=== PATIENT | male | born 1950 | race Caucasian/White ===

== ENCOUNTER 2017-08-27 17:55 | Inpatient (IN) ==
[2017-08-27] MEDS ORDERED: SODIUM CHLORIDE 0.9% 1,000 ML IV STA (18:35)
[2017-08-27 18:52] LABS: Basophils # 0.1 10*3/uL (0.0-0.2); Basophils % 0.5 % (0.0-0.8); Eosinophils # 0.7 10*3/uL (0.0-0.87); Hematocrit 44.8 VOL% (42.0-52.0); Hemoglobin 14.9 GM/DL (14.0-18.0); Immature Granulocytes % 1.3 %; Immature Granulocytes Absolute 0.13 #; Lymphocytes # 1.4 10*3/uL (1.4-4.0); Lymphocytes % 14.6 % (21.2-54.2); Mean Corpuscular HGB Conc 33.3 GM/DL (32-36); Mean Corpuscular Hemoglobin 33 PG (27-34); Mean Corpuscular Volume 98.7 FL (87-102); Mean Platelet Volume 10.3 FL (9.6-12.0); Monocytes # 0.5 10*3/uL (0.11-0.8); Monocytes % 5.2 % (1.7-12.7); Neutrophils # 6.9 10*3/uL (1.4-7.4); Neutrophils % 71.4 % (38.7-73.9); Platelet Count 292 T/CUMM (130-400); Red Blood Count 4.54 MC/CUMM (3.8-5.5); Red Cell Distribution Width 12.1 % (9.3-17.3); White Blood Count 9.7 T/CUMM (4-12)
--- NOTE | 2017-08-27 18:58 | Emergency Department Note ---
Arrival - Arrival Chief Complaint: Shortness of Breath Stated Complaint: shortness of breath ED Nursing Triage Note: Brought in per EMS from home with c/o shortness of breath onset prior to arrival. Family member reports oxygen saturation 31%, patient became cool and clammy with blue lips. Currently on CPAP, skin color pink. Awake and alert. Denies pain. Mode of Arrival: Stretcher Time Seen by Provider: 08/27/17 18:17 - History of Present Illness HPI Narrative: This is a 67-year-old white male with a history of oxygen dependent COPD who continues to smoke cigarettes who was admitted to this hospital in January 2017 with exacerbation of COPD and pneumonitis who subsequently admitted to [facility] in May 2017 and intubated for respiratory failure thought to be due to an allergic reaction to an unknown antigen presents with hypoxemia which was discovered by his family member who came home and found him with a heart rate of 40 and O2 sat of 30% on 2 L nasal and decreased mental status. The family member said that the patient was staring into space and so she called an ambulance. The patient arrived to the emergency department on CPAP and is now awake and answering questions appropriately. Allergies/Adverse Reactions: Allergies Allergy/AdvReac Type Severity Reaction Status Date / Time No Known Allergies Allergy Unverified 01/31/17 19:17 Home Medications: Home Medications Medication Instructions Recorded Confirmed Type Albuterol Sulfate [Ventolin HFA] 2 puff INH Q4H PRN 01/31/17 08/27/17 History Fluticasone/Vilanterol [Breo 1 puff INH DAILY 01/31/17 08/27/17 History Ellipta 100-25 Mcg INH] HYDROcodone/ACETAMIN 10-325 [[place] 1 tablet PO Q8H PRN 01/31/17 08/27/17 History 10-325] clonazePAM [Klonopin] 1 mg PO TID PRN 01/31/17 08/27/17 History Albuterol Neb [Proventil Neb] 2.5 mg RESP TX Q6HR 08/27/17 08/27/17 History Cholecalciferol (Vitamin D3) 5,000 unit PO QAM 08/27/17 08/27/17 History [Vitamin D3] Propranolol HCl [Propranolol Tab] 20 mg PO BID 08/27/17 08/27/17 History Review of System - Review of System Constitutional: Absent: fever, night sweats Eyes: Absent: redness Head/Ears/Nose/Throat: Absent: nasal drainage Respiratory: Present: cough, respiratory distress Cardiovascular: Present: dyspnea on exertion. Absent: chest pain, orthopnea Gastrointestinal: Absent: nausea, vomiting, diarrhea Genitourinary male: Absent: dysuria, hematuria Musculoskeletal: Absent: arthralgia, back pain, neck pain Skin: Absent: change in color, change in hair/nails Neurological: Absent: numbness, paresthesias, confusion Psychiatric: Absent: anxiety, depression Endocrine: Absent: heat intolerance, polydipsia, polyuria Hematological/Lymphatic: Absent: easy bruising, lymphadenopathy Allergic/Immunologic: Absent: urticaria, itchy eyes Medical,Surgical,& Family Hx - Medical History Cardio: History of: Hypertension Respiratory: History of: COPD, Respiratory Problems (wear o2 at home) Other: History of: Miscellaneous Medical Problems (orthostatic hypotension) - Surgical History Cardiac Surgeries: Patient Denies: Cardiac Catheterization Thoracic Surgeries: Patient denies;: Organ Transplant, Lobectomy Neurologic Surgeries: Patient denies: Neurologic Surgery HEENT Surgeries: Patient denies: Eye Surgery, Tonsilectomy & Adenoidectomy Abdominal Surgeries: Patient denies: Abdominal Surgery Reproductive Surgeries: Patient denies;: Genitourinary Surgery Orthopedic Surgeries: Surgical HX of;: Orthopedic Surgery (Right wrist surgery status post traumatic accident) - Family History Family History: Reports;: Family Heart Disease - Social History Smoking Status: Current every day smoker Frequency of Alcohol Use: None Type of Drug Use: None Exam Vital Signs: Vital Signs Temperature 97.0 F L 08/27/17 18:47 Pulse Rate 80 08/27/17 18:47 Respiratory Rate 22 08/27/17 19:21 Blood Pressure 103/67 08/27/17 18:47 O2 Sat by Pulse Oximetry 96 08/27/17 17:55 - General General appearance: alert - Eye Eye exam: Present: PERRL, EOMI - ENT ENT exam: Present: normal exam, normal oropharynx - Neck Neck exam: Present: normal inspection, full ROM - Chest Chest inspection: Present: normal inspection - Respiratory Respiratory exam: Present: rhonchi - Cardiovascular Cardiovascular exam: Present: regular rate, normal rhythm - Abdominal Exam Abdominal exam: Present: soft, normal bowel sounds - Extremities Exam Extremities exam: Present: normal inspection, full ROM - Back Exam Back exam: Present: normal inspection, full ROM - Neurological Exam Neurological exam: Present: alert, oriented X3, CN II-XII intact - Psychiatric Psychiatric exam: Present: normal affect, normal mood - Skin Skin exam: Present: warm, dry Course Course Narrative: Because the patient had altered mental status at home and had a measured O2 sat of 31% because he came to the emergency department with CPAP seems reasonable the patient should be admitted for at least observation until we are sure his respiratory status is stable. CT scan of the chest does not suggest that he has pneumonia as the cause of his respiratory failure. The troponin is negative and the electrocardiogram are basically normal. The elevated potassium 6.1 seems to be spurious based on the normal renal function and EKG. The case was discussed with the hospitalist group to admit the patient to the hospital for evaluation and treatment Results - Labs CBC & BMP: 08/27/17 18:10 08/27/17 18:10 Disposition Clinical Impression: COPD exacerbation Disposition: Still a Patient Additional Instructions: The case was discussed with the hospitalist who agreed to admit the patient to the hospital for further evaluation and treatment of his respiratory failure
[2017-08-27] MEDS ORDERED: ALBUTEROL/IPRATROPIUM 3 ML NEB RESP TX STA (18:59)
[2017-08-27] MEDS ORDERED: methylPREDNISolone SOD SUC 125 MG/2 ML VIAL IV STA (18:59)
[2017-08-27] MEDS ORDERED: methylPREDNISolone SOD SUC 125 MG/2 ML VIAL ONE (19:09)
[2017-08-27 19:10] LABS: Albumin 3.8 G/DL (3.4-5.0); Bilirubin,Total 0.5 MG/DL (0.2-1.0); Calcium 9.6 MG/DL (8.5-10.1); Osmolality,Calculated 279.8 MOS/KG (273-304); Total Protein 8.1 G/DL (6.4-8.3)
[2017-08-27 19:12] LABS: Troponin I Only < 0.015 NG/ML (0.00-0.045)
[2017-08-27 19:16] LABS: Potassium 6.1 MMOL/L (3.5-5.1)
--- NOTE | 2017-08-27 19:56 | CT Report ---
History: Hypoxemia. Shortness of breath. Respiratory distress Date: 08/27/2017 Study: CT chest without IV contrast Comparison exam: February 02, [address] exam was performed using one or more of the following dose reduction techniques: Automated exposure control, adjustment of the mA and/or kV according to patient size, or use of iterative reconstruction technique. Spiral CT sections were obtained through the lungs without contrast. There is slight hyperexpansion of the right lung with volume loss in the left lung. The right lower lobe is slightly more hyperexpanded than the right upper and middle lobes. There are some mild to moderate changes of centrilobular emphysema, more so in the lung apices. There is some mild subsegmental atelectasis in the left lower lung. There is some mild bronchial wall thickening which is more prominent on the left than on the right. There are some retained secretions in the distal aspect of the left mainstem bronchus, extending into the left upper and lower lobe proximal bronchi. There is no significant pleural or pericardial effusion. There is moderate coronary artery calcification present. There is no mediastinal mass or mediastinal lymphadenopathy. There is no thoracic aortic aneurysm. There is no definite acute abnormality of the visualized upper abdomen. There is a nonobstructing 5 mm renal stone in the left upper pole. There are some rounded low densities in the left upper pole which could represent renal cysts as before. There is mild thoracic spondylosis. Impression: There are some retained secretions in the distal aspect of the left mainstem bronchus, extending into the central left upper and lower lobe bronchi. There is no definite discrete bronchial mass seen by this exam Mild volume loss in the left lower lung. Slight hyperexpansion of the right lung Centrilobular emphysema Coronary artery calcification No significant changes from the previous study otherwise PROCEDURE INTERPRETED AT [facility] DEPARTMENT OF RADIOLOGY Final Report Signed by: Dr. Mira Clemons
[2017-08-27 20:08] LABS: VBG Base Excess 5.3 MEQ/L (0-4); VBG HCO3 37.7 MEQ/L (24-28); VBG Oxygen Saturation 83.1 %; VBG PCO2 100.1 MMHG (41-51); VBG PH 7.194; VBG PO2 46.2 MMHG (17-40)
[2017-08-27] MEDS ORDERED: ONDANSETRON 4 MG/2 ML VIAL IV PRN (20:24)
--- NOTE | 2017-08-27 20:52 | Hospitalist History & Physical ---
Assessment and Plan - Time spent with patient Time spent with patient: Greater than 30 minutes (1) COPD exacerbation Status: Acute Assessment and plan: Admit to hospitalist services. Consult pulmonology. No leukocytosis noted on tonight's labs. CXR was negative for acute process. Start Levaquin 750 mg IV Q 24. DuoNebs Q6 hours. Solumedrol 40 mg IV Q12 hours. O2 per unit protocol. Blood cultures obtained in ED; follow. Repeat CBC and BMP in a.m. Current Visit: Yes (2) Hypoxia Status: Acute Assessment and plan: O2 sats at home were in the 40s. Improved on bipap in route to ED. Bipap weaned in ED; he is now on O2 at 3L by [place]. Sats have improved into the 90s since arrival. Plan as above. Current Visit: Yes (3) Altered mental status Status: Acute Assessment and plan: Related to hypoxia. As above. Current Visit: Yes (4) Hyperkalemia Status: Acute Assessment and plan: No EKG changes. Troponin negative. Creatinine 1.1 Possibly lab error or from hemolyzed blood. Repeat lab now. Repeat BMP in a.m. Current Visit: Yes (5) Hyperglycemia Status: Acute Assessment and plan: Patient and daughter denies history of DM. BG tonight was 161. Check A1c in a.m. Current Visit: Yes (6) DVT prophylaxis Status: Acute Assessment and plan: Lovenox 40 mg SQ daily. Current Visit: Yes History of Present Illness Chief complaint: SOB; AMS History of present illness: Mr. Wu is a 67 year old male with a past medical history of COPD dependent on home O2 at 2-3 L who was brought to the ED by EMS after his daughter found him at home with an O2 sat in the 40s and a HR in the 30s. She said that when she first entered the room, she could tell that he was not well. He motioned for her to help him do his breathing treatment, at which time his lips turned blue and he stopped responding to questions. She used a personal sat monitor and checked it on herself to make sure it was accurate and then called EMS. He was placed on bipap in route and by arrival to ER, his mental status, breathing, and heart rate had improved. He was weaned to down to 3L O2 by [place]. No leukocytosis was noted on labs, however his potassium was 6.1 and VBG pCO2 was 100.1. Troponins and EKG were negative. He is a smoker who is trying to quit. He reports that he is down to 2-3 cigarettes per day. He has tried to start Chantix but reports he cannot afford it. He sees a anesthesia resident at [facility] in [place] where he was admitted in May, flown there as an intubated patient from [facility]. Currently he is lying in bed resting comfortably and reports improvement in condition. Hospitalist services were consulted, and the patient will be admitted for further evaluation and treatment. Home medications were reviewed and reconciled. This patient is a full code. Home Medications Medication Instructions Recorded Confirmed Type Albuterol Sulfate [Ventolin HFA] 2 puff INH Q4H PRN 01/31/17 08/27/17 History Fluticasone/Vilanterol [Breo 1 puff INH DAILY 01/31/17 08/27/17 History Ellipta 100-25 Mcg INH] HYDROcodone/ACETAMIN 10-325 [[place] 1 tablet PO Q8H PRN 01/31/17 08/27/17 History 10-325] clonazePAM [Klonopin] 1 mg PO TID PRN 01/31/17 08/27/17 History Albuterol Neb [Proventil Neb] 2.5 mg RESP TX Q6HR 08/27/17 08/27/17 History Cholecalciferol (Vitamin D3) 5,000 unit PO QAM 08/27/17 08/27/17 History [Vitamin D3] Propranolol HCl [Propranolol Tab] 20 mg PO BID 08/27/17 08/27/17 History Allergies Allergy/AdvReac Type Severity Reaction Status Date / Time No Known Allergies Allergy Unverified 01/31/17 19:17 Medical,Surgical,& Family Hx - Medical History Cardio: History of: Hypertension Respiratory: History of: COPD, Respiratory Problems (wear o2 at home) Other: History of: Miscellaneous Medical Problems (orthostatic hypotension) - Surgical History Orthopedic Surgeries: Surgical HX of;: Orthopedic Surgery (Right wrist surgery status post traumatic accident) - Family History Family History: Reports;: Family Heart Disease - Social History Smoking Status: Current every day smoker Have you smoked in the last 12 months: Yes (Reports smoking 2 cigarettes today. ) Time spent discussing smoking cessation with patient: 3 to 10 minutes (3 minutes were spent discussing smoking cessation with the patinet.) Frequency of Alcohol Use: None Type of Drug Use: None Marital Status: Single Lives With:: Alone Functional capacity: independent ambulation 12 point system: reviewed and no additional remarkable complaints except as stated - Constitutional Constitutional: Absent: chills, fever(s), lethargy, malaise, weakness - EENT Eyes: Absent: blurry vision, diplopia, loss of vision Ears: Absent: decreased hearing, ear discharge, ear pain Nose, mouth and throat: Absent: headache(s), nasal congestion, sore throat - Cardiovascular Cardiovascular: Present: dyspnea, dyspnea on exertion. Absent: chest pain at rest, chest pain with activity, edema, orthopnea, palpitations - Respiratory Respiratory: Present: dyspnea, dyspnea on exertion, wheezing. Absent: cough - Gastrointestinal Gastrointestinal: Absent: abdominal pain, constipation, diarrhea, nausea, vomiting - Genitourinary Genitourinary: Absent: dysuria, hematuria, urinary frequency - Musculoskeletal Musculoskeletal: Absent: arthralgias, back pain, joint swelling, muscle weakness , myalgias - Neurological Neurological: Present: behavioral changes. Absent: disequilibrium, dizziness, memory loss, numbness, paresthesias, syncope - Psychiatric Psychiatric: Absent: anxiety, depression - Endocrine Endocrine: Absent: cold intolerance, polydipsia, polyphagia, polyuria - Hematologic/Lymphatic Hematologic/Lymphatic: Absent: easy bleeding, easy bruising Exam - Constitutional Vitals: Period Temp Pulse Resp BP Sys/[place] Pulse Ox Last 24 Hr 97.0 F-97.0 F 80-81 22-22 103-103/67-67 96 Exam: Constitutional System: Afebrile. Awake, alert, and oriented x 3. No distress. No tremulousness. Head: Normocephalic, atraumatic. Ears, Nose and Throat System: No pain or tenderness. No epistaxis or discharge Eyes System: Pupils equal, round, and reactive. Extraocular muscles intact. Neck: Supple, without adenopathy, No jugular venous distention. No thyromegaly, neck mass, or prior surgery apparent. Respiratory System: Rhonchi and wheezing noted throughout. Cardiovascular System: Heart with regular rate and rhythm. No murmur. GI System: Abdomen soft, nontender. Normo active bowel sounds present. Musculoskeletal System: limbs with no pedal edema. Full distal pulses. Normal capillary refill. Neurological System: No discernable sensory deficit. No aphasia Psychiatric System: Conversation is rational Results - Labs CBC & BMP: 08/27/17 18:10 08/27/17 18:10 Lab Results: I have reviewed the past 24 hour labs Labs: WBC 9.7 RBC 4.54 Hgb 14.9 HCT 44.8 MCV 98.7 Platelet 292 VBG pH 7.194 VBG PCO2 100.1 VBG PCO2 46.2 VBG HCO3 37.7 VBG total CO2 40.8 PVD O2 saturation 93.1 VBG base excess 5.3 Sodium 137 Potassium 6.1 Chloride 99 Carbon dioxide 38 Anion gap 6.1 BUN 23 Creatinine 1.1 GFR 72 Glucose 161 Calcium 9.6 Bilirubin 0.5 AST 37 ALT 36 Alkaline phosphatase 153 Troponin less than 0.015 CRP 1.21 BNP 3
[2017-08-27] MEDS: methylPREDNISolone SOD SUC 40 MG/1 ML VIAL IV SCH (21:50)
[2017-08-27] MEDS: LEVOFLOXACIN INJ 750 MG in PREMIX 1 EACH IV SCH (21:53)
[2017-08-27] MEDS: ENOXAPARIN 40 MG/0.4 ML SYRINGE SUBCUT SCH (21:57)
[2017-08-27] MEDS: PROPRANOLOL 20 MG TABLET PO SCH (21:59)
[2017-08-28 00:05] LABS: Osmolality,Calculated 291.3 MOS/KG (273-304); Potassium 3.8 MMOL/L (3.5-5.1)
[2017-08-28] MEDS: ALBUTEROL/IPRATROPIUM 3 ML NEB RESP TX SCH ×4 (00:41→19:13)
[2017-08-28 04:01] LABS: Basophils % 0.1 % (0.0-0.8); Hematocrit 39.6 VOL% (42.0-52.0); Hemoglobin 13.4 GM/DL (14.0-18.0); Immature Granulocytes % 0.4 %; Immature Granulocytes Absolute 0.03 #; Lymphocytes # 0.5 10*3/uL (1.4-4.0); Lymphocytes % 6.8 % (21.2-54.2); Mean Corpuscular HGB Conc 33.8 GM/DL (32-36); Mean Corpuscular Hemoglobin 33 PG (27-34); Mean Corpuscular Volume 96.6 FL (87-102); Mean Platelet Volume 10.7 FL (9.6-12.0); Monocytes # 0.1 10*3/uL (0.11-0.8); Monocytes % 0.9 % (1.7-12.7); Neutrophils # 6.4 10*3/uL (1.4-7.4); Neutrophils % 91.8 % (38.7-73.9); Platelet Count 243 T/CUMM (130-400)
[2017-08-28 04:24] LABS: Calcium 8.6 MG/DL (8.5-10.1); Magnesium 2.1 MG/DL (1.8-2.4); Osmolality,Calculated 292.1 MOS/KG (273-304); Potassium 3.8 MMOL/L (3.5-5.1)
[2017-08-28 05:34] LABS: Lymphocytes 7 % (20-55); Segmented Neutrophils 93 % (50-85)
[2017-08-28 05:35] LABS: Platelet Estimate Normal; Total Cells Counted 100
[2017-08-28] MEDS: buPROPion SR 150 MG TABLET PO SCH (09:05)
[2017-08-28] MEDS: NON-FORMULARY MEDICATION (Fluticasone/Vilanterol [Breo Ellipta 100-25 Mcg Inh] 1 PUFF) INH SCH (09:09)
[2017-08-28] MEDS: CHOLECALCIFEROL 1,000 UNIT TABLET PO SCH (09:19)
[2017-08-28] MEDS: PROPRANOLOL 20 MG TABLET PO SCH (09:19)
[2017-08-28] MEDS: PANTOPRAZOLE 40 MG TABLET PO SCH (09:19)
[2017-08-28] MEDS: clonazePAM 0.5 MG TABLET PO PRN ×2 (09:19→21:01)
[2017-08-28] MEDS: methylPREDNISolone SOD SUC 40 MG/1 ML VIAL IV SCH (09:21)
--- NOTE | 2017-08-28 11:56 | Order Completion Report ---
See report scanned to EMR
--- NOTE | 2017-08-28 14:14 | Hospitalist Progress Note ---
Assessment and Plan (1) COPD exacerbation Status: Acute Assessment and plan: duoneb, solumedrol, levaquin IV Current Visit: Yes (2) Lung mass Status: Acute Assessment and plan: Consult Dr. Gusman Current Visit: Yes (3) Hyperkalemia Status: Acute Assessment and plan: resolved Current Visit: Yes (4) Hyperglycemia Status: Acute Assessment and plan: hgb a1c 5.6 Current Visit: Yes (5) Hypoxia Status: Acute Assessment and plan: keep oxygen sat 85 to 88, refused bipap Current Visit: Yes Hospitalist: Subjective Interval history: Patient has already O2 dependent on at home. Patient very discouraged due to his current lung condition and continues to smoke and has no intentions to stop smoking he told me today. Exam - Constitutional Vitals: Period Temp Pulse Resp BP Sys/[place] Pulse Ox Last 24 Hr 97.0 F-98.5 F 59-85 18-24 94-108/53-67 18-100 Exam: Heart Rate-[RRR] Lungs-[coarse extremely diminished] GI-[+bs soft, NT] Ext-[no edema] Neuro [Motor 5/5], [alert and oriented times 3] psych [depressed mood and flat affect] General [no acute distress] Results - Labs CBC & BMP: 08/28/17 02:40 08/28/17 02:40 Lab Results: I have reviewed the past 24 hour labs - Diagnostic Findings Procedure: CT - chest: report reviewed by me (There are retained secretions in the distal left main bronchus extending to the left upper lobe bronchi with a discrete bronchial mass.)
--- NOTE | 2017-08-28 15:36 | Pulmonology Consult Note ---
History of Present Illness Chief complaint: CO2 100.1, PO2 46.2. Tobacco abuse. COPD History of present illness: Mr. Wu is a 67 year old white male whom I was asked to see in pulmonary consultation for evaluation and treatment. This patient is usually followed by pulmonary injection. He uses home oxygen 2- 3 L/min. he was found at home with O2 sats in the 40s and heart rate in 30s. This patient is a smoker who says he has been trying to stop smoking but he is to continue to smoke. He said he is down to 2-3 cigarettes per day. In May he was flown to [facility] after he had been intubated at [facility]. No family is present. The family had told Dr. aPrsons that the patient had an altered mental status when he was found. This patient is reluctant to give any history. I asked him and he ever taken Singulair or theophylline he said no. He denies any gastroesophageal reflux. He has a cough but he cannot tell me anything about his sputum. He is not aware of any hemoptysis. Patient could not tell me why he is taking Inderal (propranolol) The remainder review of systems is negative. Allergies. Antihistamines Home medicines. Propanolol 20 mg twice daily. [place] 10/325 one 3 times daily as needed. Vitamin D3 5000 units daily. Klonopin 1 mg p.o. 3 times daily as needed. Albuterol inhaler. Brio elliptical [id number] one puff daily Past history. Home oxygen. COPD. Tobacco abuse. High blood pressure previous right wrist surgery. Social history. Longtime smoker who says he smokes 2-3 cigarettes per day. Denies alcohol. Single. Followed by pulmonary injection. Chest x-ray. 08/28/2017. My interpretation. Small heart top normal pulmonary arteries hyperinflated lungs. No masses infiltrates or pulmonary edema CT of the chest. Some retained secretions in the distal aspect of the left mainstem bronchus extending into the central left upper and lower lobe bronchi. Mild volume loss in the left lower lung. Slight hyperinflation in the right lung. Centrilobular emphysema. Coronary artery calcifications. ABGs. PH is 7.194, PCO2 is 100.1, PO2 is 46.2. Bicarb is 37.7 Lab. Admit white count was 9771 segs 15 lymphs and 5 monocytes. H&H is 13.4/ 39.6 with normal indices. Platelets of 243,000. Electrolytes normal. Creatinine is 1.0. BUNs 26. Alkaline phosphatase elevated at 153. Transaminases and total bilirubin are normal. C-reactive protein is elevated at 1.21. Nitrated peptide is 3. Total protein is 8.1, albumin 3.8 and globulin 4.3. Microbiology. No tests reported. Physical exam. Vital signs. Temperature is 98.5. Heart rate is in the 70s. Respiratory rate is 14-18. Blood pressure 99/55. Patient is on FiO2 of 24%. Psychiatric. Sleepy. Not too interested in answering my questions but will when I insist. Face. Symmetrical. No edema of the lips or tongue. Neck. Symmetrical. No meningismus. Thyroid was not palpated Lymphatics. No submandibular cervical supraclavicular or epitrochlear adenopathy. Chest. Hyperinflated. No chest wall tenderness. Coarse wheezing congestion in her trachea and large airways. No high-pitched peripheral wheezes were heard but the patient may not be moving enough air to produce disease. Heart. Distal. No gallop Abdomen. Nontender. No masses were palpated. Bowel sounds are present. and rectal deferred Extremities. Trace of pedal and pretibial edema bilaterally. No clubbing. Neurologic. Cranial nerves are grossly intact. Patient moves all 4 extremities. Sensory exam was not done and gait was not tested. Arterial. Carotids are decreased. Upper extremity pulses are palpable. Lower extremity pulses nonpalpable. Venous exam. Neck and upper extremities are normal lower extremities show mild chronic venous stasis changes. Negative hepatojugular reflux. Skin of the face and hand showed no obvious cancers or infectious. Venous stasis changes over the lower extremities. No other areas of skin were examined. Impression. 1. Severe end-stage COPD. Past history of intubation mechanical ventilation. 2. Bronchitis with retention of sputum 3. Respiratory failure for oxygen and carbon dioxide. Probably exacerbated by supplemental oxygen. Probably acute on chronic. 4. Tobacco abuse 5. See past history 6. High blood Plan. 1. Steroids 2. Meropenem 3. Diamox 4. IV Aminophyllin with daily levels 5. I would like to stop propanolol. I am not sure why he is taking it so we will not stop it yet. Could be for tremor but it could be for cardiac causes. It would be unusual for this patient be on this medicine for this length of time for high blood pressure. 6. Daily ABGs, be MP 7. Do not increase supplemental 8. Mucinex 600 mg p.o. twice daily 9. Sputum for Gram stain culture and sensitivity 10. See orders 11. TSH and free T4 10. Agree with proton pump inhibitors and deep venous thrombophlebitis prevention protocols. Home Medications Medication Instructions Recorded Confirmed Type Albuterol Sulfate [Ventolin HFA] 2 puff INH Q4H PRN 01/31/17 08/27/17 History Fluticasone/Vilanterol [Breo 1 puff INH DAILY 01/31/17 08/27/17 History Ellipta 100-25 Mcg INH] HYDROcodone/ACETAMIN 10-325 [[place] 1 tablet PO Q8H PRN 01/31/17 08/27/17 History 10-325] clonazePAM [Klonopin] 1 mg PO TID PRN 01/31/17 08/27/17 History Albuterol Neb [Proventil Neb] 2.5 mg RESP TX Q6HR 08/27/17 08/27/17 History Cholecalciferol (Vitamin D3) 5,000 unit PO QAM 08/27/17 08/27/17 History [Vitamin D3] Propranolol HCl [Propranolol Tab] 20 mg PO BID 08/27/17 08/27/17 History Allergies Allergy/AdvReac Type Severity Reaction Status Date / Time Antihistamines - Alkylamine Allergy Severe Swelling Verified 08/27/17 22:05 of Lip/Tongue/Throat Exam (Pulmonay) H&P - Constitutional Vitals: Period Temp Pulse Resp BP Sys/[place] Pulse Ox Last 24 Hr 97.0 F-98.5 F 59-85 18-24 94-108/53-67 18-100 Medical,Surgical,& Family Hx - Medical History Cardio: History of: Hypertension Respiratory: History of: COPD, Respiratory Problems (wear o2 at home, 2-3 L) Other: History of: Miscellaneous Medical Problems (orthostatic hypotension) - Surgical History Cardiac Surgeries: Patient Denies: Cardiac Catheterization Thoracic Surgeries: Patient denies;: Organ Transplant, Lobectomy Neurologic Surgeries: Patient denies: Neurologic Surgery HEENT Surgeries: Patient denies: Eye Surgery, Tonsilectomy & Adenoidectomy Abdominal Surgeries: Patient denies: Abdominal Surgery Reproductive Surgeries: Patient denies;: Genitourinary Surgery Orthopedic Surgeries: Surgical HX of;: Orthopedic Surgery (Right wrist surgery status post traumatic accident) - Family History Family History: Reports;: Family Heart Disease - Social History Smoking Status: Current every day smoker Frequency of Alcohol Use: None Type of Drug Use: None Results - Labs CBC & BMP: 08/28/17 02:40 08/28/17 02:40
--- NOTE | 2017-08-28 15:41 | XRay Report ---
History: Hypoxemia. Hypercarbia Date: 08/28/2017 Study: Chest x-ray single view portable Comparison exam: February 04, 2017 The cardiac silhouette is not enlarged. There is no mediastinal mass. The pulmonary vasculature is not engorged. There are scattered emphysematous changes. There is minor strandy scar or subsegmental atelectasis in the left lung base. There is no hermes pneumonia. There is no gross pleural effusion. There is no significant bony abnormality Impression: No definite acute abnormality. Emphysematous changes PROCEDURE INTERPRETED AT [facility] DEPARTMENT OF RADIOLOGY Final Report Signed by: Dr. Mira Clemons
[2017-08-28] MEDS ORDERED: AMINOPHYLLINE 250 MG in SODIUM CHLORIDE 0.9% 100 ML IV ONE (16:30)
[2017-08-28] MEDS: MEROPENEM 500 MG in SODIUM CHLORIDE 0.9% 50 ML IV SCH (17:36)
[2017-08-28] MEDS: MONTELUKAST 10 MG TABLET PO SCH (17:36)
[2017-08-28] MEDS: LEVOFLOXACIN INJ 750 MG in PREMIX 1 EACH IV SCH (21:01)
[2017-08-28] MEDS: methylPREDNISolone SOD SUC 125 MG/2 ML VIAL IV SCH (21:03)
[2017-08-28] MEDS: PRIMIDONE 50 MG TABLET PO SCH (21:06)
[2017-08-28] MEDS: ENOXAPARIN 40 MG/0.4 ML SYRINGE SUBCUT SCH (21:08)
[2017-08-28] MEDS: AMINOPHYLLINE 500 MG in SODIUM CHLORIDE 0.9% 480 ML IV SCH (23:19)
[2017-08-29] MEDS: MEROPENEM 500 MG in SODIUM CHLORIDE 0.9% 50 ML IV SCH ×3 (01:04→16:46)
[2017-08-29] MEDS: ALBUTEROL/IPRATROPIUM 3 ML NEB RESP TX SCH ×4 (02:43→19:10)
[2017-08-29 03:53] LABS: ABG Base Excess -1.3 MMOL/L (-2.5-2.5); ABG HCO3 23.3 MMOL/L (20-26); ABG Oxygen Saturation 98.1 % (95-100); ABG PCO2 42.3 MM HG (35-48); ABG PH 7.364 (7.35-7.45); ABG PO2 96.1 MM HG (80-95); ABG TCO2 20.7 MMOL/L (23-27); Allen Test Positive
[2017-08-29 07:10] LABS: Calcium 8.9 MG/DL (8.5-10.1); Osmolality,Calculated 284.3 MOS/KG (273-304); Potassium 3.8 MMOL/L (3.5-5.1)
[2017-08-29] MEDS: NON-FORMULARY MEDICATION (Fluticasone/Vilanterol [Breo Ellipta 100-25 Mcg Inh] 1 PUFF) INH SCH (09:30)
[2017-08-29] MEDS: MONTELUKAST 10 MG TABLET PO SCH (10:52)
[2017-08-29] MEDS: PANTOPRAZOLE 40 MG TABLET PO SCH (10:52)
[2017-08-29] MEDS: clonazePAM 0.5 MG TABLET PO PRN ×2 (10:52→21:15)
[2017-08-29] MEDS: CHOLECALCIFEROL 1,000 UNIT TABLET PO SCH (10:52)
[2017-08-29] MEDS: methylPREDNISolone SOD SUC 125 MG/2 ML VIAL IV SCH ×2 (10:53→21:13)
[2017-08-29] MEDS: buPROPion SR 150 MG TABLET PO SCH (10:54)
[2017-08-29] MEDS: NICOTINE 21 MG/24 HR PATCH TRANSDERM SCH (10:54)
--- NOTE | 2017-08-29 12:01 | Hospitalist Progress Note ---
Assessment and Plan (1) COPD exacerbation Status: Acute Assessment and plan: Continue duoneb, solumedrol, levaquin IV and Aminophylline Current Visit: Yes (2) Hyperkalemia Status: Acute Assessment and plan: resolved Current Visit: Yes (3) Hyperglycemia Status: Acute Assessment and plan: hgb a1c 5.6 Current Visit: Yes (4) Hypoxia Status: Acute Assessment and plan: keep oxygen sat 85 to 88, refused bipap, cont diamox to help with co2, ABG much improved without oxygen Current Visit: Yes Hospitalist: Subjective Interval history: Thanks to Dr. Gusman for his help. Patient sounds better today. We will add a nicotine patch. Patient is off oxygen and went to keep his oxygen between 85-88 % due to his elevated CO2 and his inability to tolerate BiPAP Exam - Constitutional Vitals: Period Temp Pulse Resp BP Sys/Bagley Pulse Ox Last 24 Hr 97.4 F-98.5 F 53-88 17-20 99-118/49-62 18-99 Exam: Heart Rate-[RRR] Lungs-[diminished but clear] GI-[+bs soft, NT] Ext-[no edema] Neuro [Motor 5/5], [alert and oriented times 3] psych [depressed mood and flat affect] General [no acute distress] Results - Labs CBC & BMP: 08/28/17 02:40 08/29/17 06:09 Lab Results: I have reviewed the past 24 hour labs
--- NOTE | 2017-08-29 14:22 | Pulmonology Progress Note ---
Pulmonary - PN: Subj Interval history: This is a 67-year-old white male. I saw him in pulmonary consultation for evaluation treatment on 08/28/2017. This patient is usually followed by pulmonary in [facility]. He uses 2-3 L/min of oxygen at home. Says she has been trying to quit smoking. In May 2017 he required intubation mechanical ventilation. My impressions were. 1. Severe end-stage COPD. Past history of intubation mechanical ventilation. 2. Bronchitis with retention of sputum 3. Respiratory failure for oxygen and carbon dioxide. Probably exacerbated by supplemental oxygen. Probably acute on chronic. ABGs showed a pH of 7.194, PCO2 of 100.1, PO2 46.2 and a bicarb of 37.7 4. Tobacco abuse 5. See past history 6. High blood 08/29/2017. Patient is much more alert today and able to converse in a meaningful way. Chest x-ray shows normal size heart. Top normal pulmonary arteries. Hyperinflated lung honeycutt. ABGs have made her rather remarkable improvement. PH is 7.36, PCO2 is 42.3 and PCO2 is 96.1. Bicarb is 23.3. Electrolytes are normal. Glucoses are normal. Creatinine is 0.8 with a BUN of 19. Theophylline level is 5.0. 2 blood cultures are growing a gram-positive cocci. Thyroid function test Physical exam. Vital signs. See below. Psychiatric. Oriented 3 and appropriate. Face. Symmetrical with no edema of the lips or tongue. Neck. Symmetrical. No mass. No meningismus Chest. Hyperinflated with prolonged incomplete expiration. Clearly moving more air than he was yesterday. Heart. No gallop. Increased P2. Abdomen. Nontender. Positive bowel sounds. Extremities. No clubbing no edema no deep venous thrombophlebitis Lymphatics. No submandibular cervical supraclavicular or epitrochlear adenopathy. Neurologic. Cranial nerves are intact with some decreased hearing acuity bilaterally. Long track motor function was intact. Patient is sitting on the side of bed. Gait was not tested The remainder the physical exam is negative Plan. 08/28/2017 1. Steroids 2. Meropenem 3. Diamox 4. IV Aminophyllin with daily levels 5. I would like to stop propanolol. I am not sure why he is taking it so we will not stop it yet. Could be for tremor but it could be for cardiac causes. It would be unusual for this patient be on this medicine for this length of time for high blood pressure. 6. Daily ABGs, be MP 7. Do not increase supplemental 8. Mucinex 600 mg p.o. twice daily 9. Sputum for Gram stain culture and sensitivity 10. See orders 11. TSH and free T4 10. Agree with proton pump inhibitors and deep venous thrombophlebitis prevention protocols. 08/29/2017 1. Continue present regimen. Consider increased theophylline 2. Follow-up chest x-ray ABGs and lab. Exam (Progress Note) - Constitutional Vitals: Period Temp Pulse Resp BP Sys/Bagley Pulse Ox Last 24 Hr 97.4 F-97.8 F 53-88 17-20 101-118/49-62 92-99 Results - Labs CBC & BMP: 08/28/17 02:40 08/29/17 06:09
[2017-08-29] MEDS: LEVOFLOXACIN INJ 750 MG in PREMIX 1 EACH IV SCH (21:09)
[2017-08-29] MEDS: PRIMIDONE 50 MG TABLET PO SCH (21:16)
[2017-08-29] MEDS: ENOXAPARIN 40 MG/0.4 ML SYRINGE SUBCUT SCH (21:17)
[2017-08-30] MEDS: ALBUTEROL/IPRATROPIUM 3 ML NEB RESP TX SCH ×4 (00:31→19:37)
[2017-08-30] MEDS: MEROPENEM 500 MG in SODIUM CHLORIDE 0.9% 50 ML IV SCH ×3 (00:47→16:42)
[2017-08-30 05:39] LABS: Calcium 8.5 MG/DL (8.5-10.1); Osmolality,Calculated 286.4 MOS/KG (273-304); Potassium 3.7 MMOL/L (3.5-5.1)
[2017-08-30 06:28] LABS: Allen Test Positive
[2017-08-30 06:29] LABS: ABG Base Excess -4.1 MMOL/L (-2.5-2.5); ABG Oxygen Saturation 97.9 % (95-100); ABG PCO2 39.3 MM HG (35-48); ABG PH 7.343 (7.35-7.45); ABG PO2 90.8 MM HG (80-95); ABG TCO2 18.9 MMOL/L (23-27)
[2017-08-30] MEDS: methylPREDNISolone SOD SUC 125 MG/2 ML VIAL IV SCH ×2 (10:12→22:33)
[2017-08-30] MEDS: MONTELUKAST 10 MG TABLET PO SCH (10:16)
[2017-08-30] MEDS: PANTOPRAZOLE 40 MG TABLET PO SCH (10:16)
[2017-08-30] MEDS: CHOLECALCIFEROL 1,000 UNIT TABLET PO SCH (10:16)
[2017-08-30] MEDS: buPROPion SR 150 MG TABLET PO SCH (10:17)
[2017-08-30] MEDS: NICOTINE 21 MG/24 HR PATCH TRANSDERM SCH (10:17)
[2017-08-30] MEDS: clonazePAM 0.5 MG TABLET PO PRN ×2 (10:21→22:30)
--- NOTE | 2017-08-30 10:24 | Hospitalist Progress Note ---
Assessment and Plan (1) COPD (chronic obstructive pulmonary disease) Status: Chronic Assessment and plan: Impression: 1. COPD with acute exacerbation 2. Bacteremia Plan: Continue current antibiotics. Await identification of organisms. Continue current therapy for COPD. This note was completed using [employer] voice recognition software. There may be metal hanger errors as a result. Current Visit: No Qualifiers: COPD type: COPD with acute exacerbation Qualified Code(s): J44.1 - Chronic obstructive pulmonary disease with (acute) exacerbation Hospitalist: Subjective Interval history: Follow-up COPD exacerbation with bacteremia. The patient reports no new breathing problems. He continues on an Aminophyllin infusion. 2 of 2 blood cultures are positive for gram-positive cocci; the organism has not yet been identified. Exam - Constitutional Vitals: Period Temp Pulse Resp BP Sys/Bagley Pulse Ox Last 24 Hr 97.3 F-98.4 F 60-101 18-24 110-124/55-75 94-98 Vital signs are noted above. Heart is regular with distant tones. He is moving air fairly well. There are only rare scattered wheezes. He is awake and alert. Results - Labs CBC & BMP: 08/28/17 02:40 08/30/17 04:15 Lab Results: I have reviewed the past 24 hour labs Specialty Discharge - Follow Up or Referrals
[2017-08-30] MEDS: NON-FORMULARY MEDICATION (Fluticasone/Vilanterol [Breo Ellipta 100-25 Mcg Inh] 1 PUFF) INH SCH (10:28)
--- NOTE | 2017-08-30 12:45 | Pulmonology Progress Note ---
Pulmonary - PN: Subj Interval history: Demetrio Kerr, AGJOSEPH-, acting as scribe for Dr. Rusty Gusman This is a 67-year-old white male. We saw him in pulmonary consultation for evaluation treatment on 08/28/2017. This patient is usually followed by pulmonary in [place], [place]. He uses 2-3 L/min of oxygen at home. Says she has been trying to quit smoking. In May 2017 he required intubation and mechanical ventilation. At the time of our initial consult, our impressions were: 1. Severe end-stage COPD. Past history of intubation mechanical ventilation. 2. Bronchitis with retention of sputum 3. Respiratory failure for oxygen and carbon dioxide. Probably exacerbated by supplemental oxygen. Probably acute on chronic. ABGs showed a pH of 7.194, PCO2 of 100.1, PO2 46.2 and a bicarb of 37.7 4. Tobacco abuse 5. See past history 6. High blood 08/29/2017. Patient is much more alert today and able to converse in a meaningful way. Chest x-ray shows normal size heart. Top normal pulmonary arteries. Hyperinflated lung honeycutt. ABGs have made her rather remarkable improvement. PH is 7.36, PCO2 is 42.3 and PCO2 is 96.1. Bicarb is 23.3. Electrolytes are normal. Glucoses are normal. Creatinine is 0.8 with a BUN of 19. Theophylline level is 5.0. 2 blood cultures are growing a gram-positive cocci. Thyroid function test 08/30/2017. The patient was seen today along with his student nurse. He appears improved and states that he is breathing much better than he was at the time of our initial consultation. On chest exam, his previously noted high- pitched peripheral wheezes have subsided with the addition of IV Aminophyllin. Theophylline level today is 4.1 but this appears therapeutic for him. We will convert this to oral theophylline 200 mg twice daily. Given his propensity to wheeze, we will also start albuterol 1 mg twice daily. He needs to continue Singulair that he is on now. In anticipation of an upcoming discharge, we will change his Diamox to oral dose. Patient's blood cultures are growing gram- positive cocci from 08/27/2017, but thus far a final ID was sensitivities is not been resulted. Medications have been reviewed. Labs been reviewed. Creatinine 0.90, BUN 22, electrolytes are normal; theophylline level 4.1 ABGs this morning on an FiO2 of 28% showed pH of 7.343, PCO2 39.3, PO2 90.8, bicarb 21.0, oxygen saturation 97.9% Exam (Progress Note) - Constitutional Vitals: Period Temp Pulse Resp BP Sys/Bagley Pulse Ox Last 24 Hr 97.3 F-98.4 F 60-101 18-24 110-124/56-75 96-98 Exam: Chest is hyperinflated with prolonged and incomplete expiration Heart no gallop; increased PT Abdomen is nontender nondistended; bowel sounds are positive 4 Extremities with nothing to suggest acute deep venous thrombus phlebitis Psychiatric oriented 3 Neurologic long-term motor function is intact Plan: Change of Diamox to 250 mg p.o. twice daily. Start albuterol 1 mg p.o. twice daily. Change IV Aminophyllin to oral theophylline 200 mg twice daily. See orders. Results - Labs CBC & BMP: 08/28/17 02:40 08/30/17 04:15 Specialty Discharge - Follow Up or Referrals
[2017-08-30] MEDS: THEOPHYLLINE ER (24 HR) 200 MG CAPSULE PO SCH (16:42)
[2017-08-30] MEDS: AMINOPHYLLINE 500 MG in SODIUM CHLORIDE 0.9% 480 ML IV SCH (17:29)
[2017-08-30] MEDS: PRIMIDONE 50 MG TABLET PO SCH (22:30)
[2017-08-30] MEDS: acetaZOLAMIDE 250 MG TABLET PO SCH (22:31)
[2017-08-30] MEDS: ENOXAPARIN 40 MG/0.4 ML SYRINGE SUBCUT SCH (22:31)
[2017-08-30] MEDS: LEVOFLOXACIN INJ 750 MG in PREMIX 1 EACH IV SCH (22:36)
[2017-08-30] MEDS: ALBUTEROL 0.4 MG/ML 30 ML/BOTTLE PO SCH (22:43)
[2017-08-31] MEDS ORDERED: AMINOPHYLLINE 250 MG in SODIUM CHLORIDE 0.9% 240 ML IV SCH
[2017-08-31] MEDS: MEROPENEM 500 MG in SODIUM CHLORIDE 0.9% 50 ML IV SCH ×2 (00:12→09:25)
[2017-08-31] MEDS: ALBUTEROL/IPRATROPIUM 3 ML NEB RESP TX SCH ×3 (01:00→13:53)
[2017-08-31 04:08] LABS: ABG Base Excess -2.9 MMOL/L (-2.5-2.5); ABG PCO2 39.8 MM HG (35-48); ABG PH 7.357 (7.35-7.45); ABG PO2 90.7 MM HG (80-95); ABG TCO2 19.9 MMOL/L (23-27); Allen Test Positive; Pt O2 Delivery Device Room Air
[2017-08-31 07:40] LABS: Osmolality,Calculated 282.5 MOS/KG (273-304); Potassium 3.9 MMOL/L (3.5-5.1)
[2017-08-31] MEDS: NON-FORMULARY MEDICATION (Fluticasone/Vilanterol [Breo Ellipta 100-25 Mcg Inh] 1 PUFF) INH SCH (09:18)
[2017-08-31] MEDS: ALBUTEROL 0.4 MG/ML 30 ML/BOTTLE PO SCH (09:23)
[2017-08-31] MEDS: NICOTINE 21 MG/24 HR PATCH TRANSDERM SCH (09:24)
[2017-08-31] MEDS: clonazePAM 0.5 MG TABLET PO PRN (09:24)
[2017-08-31] MEDS: THEOPHYLLINE ER (24 HR) 200 MG CAPSULE PO SCH (09:24)
[2017-08-31] MEDS: methylPREDNISolone SOD SUC 125 MG/2 ML VIAL IV SCH (09:24)
[2017-08-31] MEDS: MONTELUKAST 10 MG TABLET PO SCH (09:25)
[2017-08-31] MEDS: buPROPion SR 150 MG TABLET PO SCH (09:25)
[2017-08-31] MEDS: acetaZOLAMIDE 250 MG TABLET PO SCH (09:25)
[2017-08-31] MEDS: PANTOPRAZOLE 40 MG TABLET PO SCH (09:25)
[2017-08-31] MEDS: CHOLECALCIFEROL 1,000 UNIT TABLET PO SCH (10:42)
[2017-08-31 11:45] VITALS: BP 108/60
--- NOTE | 2017-08-31 13:21 | Pulmonology Progress Note ---
Pulmonary - PN: Subj Interval history: This is a 67-year-old white male. I saw him in pulmonary consultation for evaluation treatment on 08/28/2017. This patient is usually followed by pulmonary in [facility]. He uses 2-3 L/min of oxygen at home. Says she has been trying to quit smoking. In May 2017 he required intubation mechanical ventilation. My impressions were. 1. Severe end-stage COPD. Past history of intubation mechanical ventilation. 2. Bronchitis with retention of sputum 3. Respiratory failure for oxygen and carbon dioxide. Probably exacerbated by supplemental oxygen. Probably acute on chronic. Venous ABGs showed a pH of 7.194, PCO2 of 100.1, PO2 46.2 and a bicarb of 37.7. These are peripheral venous ABGs have not done properly they may be inaccurate. 4. Tobacco abuse 5. See past history 6. High blood 08/29/2017. Patient is much more alert today and able to converse in a meaningful way. Chest x-ray shows normal size heart. Top normal pulmonary arteries. Hyperinflated lung honeycutt. ABGs have made her rather remarkable improvement. PH is 7.36, PCO2 is 42.3 and PCO2 is 96.1. Bicarb is 23.3. Electrolytes are normal. Glucoses are normal. Creatinine is 0.8 with a BUN of 19. Theophylline level is 5.0. 2 blood cultures are growing a gram-positive cocci. Thyroid function test are normal 08/31/2017. This patient continues to improve. His ABGs show a pH of 7.357, PCO2 39.8, PO2 of 90.7 and a bicarb of 22. His electrolytes are normal and his glucoses are under good control. On 08/30/2017 he was converted from IV Aminophyllin to p.o. Aminophyllin. His theophylline level is less than 2.07 MS to been some delay and getting his medicine. When this patient goes home I suggested we send him home on Diamox 250 mg daily, liquid albuterol 1 mg p.o. twice daily. And inhalation therapy with DuoNeb nebs 2-4 times a day, Mucinex 600 mg p.o. twice daily prednisone 10 mg daily for 10 days followed by 10 mg every other day for 10 doses. NicoDerm patch if he wants it. Grabiel-24 200 mg twice daily. At home he uses Brio elliptical 80841 one puff daily , This should be continued. This patient is from [facility] and he is followed by kst operator in [place]. He will not need a follow-up appointment to see me. Note that the patient's initial blood gases were venous ABGs. This was a peripheral specimen. There is a good chance this was inaccurate. Physical exam. Vital signs. See below. Psychiatric. Oriented 3 and appropriate. Face. Symmetrical with no edema of the lips or tongue. Neck. Symmetrical. No mass. No meningismus Chest. Hyperinflated with prolonged incomplete expiration. Clearly moving more air than he was yesterday. Heart. No gallop. Increased P2. Abdomen. Nontender. Positive bowel sounds. Extremities. No clubbing no edema no deep venous thrombophlebitis Lymphatics. No submandibular cervical supraclavicular or epitrochlear adenopathy. Neurologic. Cranial nerves are intact with some decreased hearing acuity bilaterally. Long track motor function was intact. Patient is sitting on the side of bed. Gait was not tested The remainder the physical exam is negative Plan. 08/28/2017 1. Steroids 2. Meropenem 3. Diamox 4. IV Aminophyllin with daily levels 5. I would like to stop propanolol. I am not sure why he is taking it so we will not stop it yet. Could be for tremor but it could be for cardiac causes. It would be unusual for this patient be on this medicine for this length of time for high blood pressure. 6. Daily ABGs, be MP 7. Do not increase supplemental 8. Mucinex 600 mg p.o. twice daily 9. Sputum for Gram stain culture and sensitivity 10. See orders 11. TSH and free T4 10. Agree with proton pump inhibitors and deep venous thrombophlebitis prevention protocols. 08/29/2017 1. Continue present regimen. Consider increased theophylline 2. Follow-up chest x-ray ABGs and lab. 08/31/2017. 1. Please see today's note above 2. This patient could probably be discharged in the next day or 2. In my 08/31 note I left some suggestions for his discharge medicines. He is followed by pulmonary and Jatin will not need to see me. 3. I will sign off. Please reconsult if you need me Exam (Progress Note) - Constitutional Vitals: Period Temp Pulse Resp BP Sys/Bagley Pulse Ox Last 24 Hr 97.3 F-98.4 F 70-98 16-20 104-111/52-60 95-99 Results - Labs CBC & BMP: 08/28/17 02:40 08/31/17 06:34 Specialty Discharge - Follow Up or Referrals
--- NOTE | 2017-08-31 14:01 | Discharge Summary ---
Hospital Course - Hospital Course Hospital Course: Discharge diagnosis: COPD with acute exacerbation Chronic hypercapnic respiratory failure Tremor The patient presented to the hospital with a COPD exacerbation. He was found to be hypoxic and hypercapnic. Medications were revised. Over the next day or so, he began to improve. He has a history of smoking, and continues to smoke about 2 packs of cigarettes per week. We discussed smoking cessation. He says that he quit for 6 month. A while back, and thinks that he might be able to do it again. We discussed nicotine replacement and Chantix. He is not interested in using Chantix. This discussion lasted for about 5 minutes. Medication reconciliation has been performed. Regular diet. Activity as tolerated. This note was completed using [employer] voice recognition software. There may be bag liner errors as a result. Diagnosis - Discharge Diagnosis (1) COPD (chronic obstructive pulmonary disease) Status: Chronic Specialty Discharge - Follow Up or Referrals Discharge Plan - Discharge Data Disposition: Disch To Home/Self Care Condition at Discharge: Stable Discharge Diet: advance to your usual diet Activity: resume usual activities as tolerated Hygiene: no restrictions Weight Bearing at Discharge: full weight bearing - Discharge Medications New Albuterol Liquid [Proventil Liquid] 1 mg PO BID #1 bottle Nicotine 21 mg/24 Hr Patch [Nicoderm CQ 21 mg/24 hr Patch] 1 patch TRANSDERM DAILY #30 patch predniSONE TAB [PredniSONE] 10 mg PO DAILY #10 tablet Primidone [Mysoline] 25 mg PO BEDTIME tablet acetaZOLAMIDE TAB [Diamox Tab] 250 mg PO DAILY #30 tablet guaiFENesin ER TAB [Mucinex] 600 mg PO BID #60 tablet Theophylline ER Cap (24 Hr) [Grabiel-24] 200 mg PO BID W/MEALS #60 capsule Continue Albuterol Sulfate [Ventolin HFA] 2 puff INH Q4H PRN PRN Reason: Shortness Of Breath/Wheezing clonazePAM [Klonopin] 1 mg PO TID PRN PRN Reason: Agitation Cholecalciferol (Vitamin D3) [Vitamin D3] 5,000 unit PO QAM Fluticasone/Vilanterol [Breo Ellipta 100-25 Mcg INH] 1 puff INH DAILY HYDROcodone/ACETAMIN 10-325 [[place] 10-325] 1 tablet PO Q8H PRN PRN Reason: Pain Albuterol Neb [Proventil Neb] 2.5 mg RESP TX Q6HR Discontinued Propranolol HCl [Propranolol Tab] 20 mg PO BID - Follow Up or Referral - Forms/Instructions Instructions: How to Stop Smoking (GEN), Cigarette Smoking and Your Health (GEN ), Chronic Obstructive Pulmonary Disease (GEN), COPD Exacerbation, Sales Representative [employer] (GEN) Exam - Constitutional Vitals: Period Temp Pulse Resp BP Sys/Bagley Pulse Ox Last 24 Hr 97.3 F-98.4 F 70-103 16-20 104-111/52-60 95-99 Vital signs are noted above. Heart is regular with distant tones. He has a few expiratory wheezes, but the lung honeycutt are mostly clear. He has an action tremor. Discharge Results Procedures and tests throughout hospitalization: Pending Orders 08/28/17 15:18 Sputum Culture and Gram Stain Stat 09/01/17 04:00 Arterial Blood Gas IN AM Basic Metabolic Panel IN AM Theophylline IN AM 09/02/17 04:00 Arterial Blood Gas IN AM Basic Metabolic Panel IN AM Theophylline IN AM 09/03/17 04:00 Theophylline IN AM Labs on day of discharge: Labs from last 24 hours 08/31/17 08/31/17 08/31/17 06:34 06:34 04:00 ABG pH 7.357 ABG pCO2 39.8 ABG pO2 90.7 ABG HCO3 22.0 ABG Total CO2 19.9 L ABG O2 Saturation 98.0 ABG Base Excess -2.9 L FiO2 21.00 Sodium 139 Potassium 3.9 Chloride 107 Carbon Dioxide 22 Anion Gap 13.9 BUN 22 H Creatinine 0.70 GFR Calculation 105 BUN/Creatinine Ratio 31.00 H Glucose 148 H Calculated Osmolality 282.5 Calcium 9.0 Theophylline < 2.0 L DS: Provider Date of admission: 08/27/17 20:22 Primary care physician: Naa Metzger NP Attending physician on admission: Ellen Parsons MD Consults: 08/27/17 20:24 Consult to Physician [CONS] Routine Comment: bronchus mass, severe copd Consulting Provider: Rusty Nolasco Person Notified: dr. nolasco Date Notified: 08/28/17 Time Notified: 10:30 Consult to Pulmonary Rehabilitation [CONS] Routine Reason for Pulmonary Rehabilitation: COPD Discharging clinician: Benito Garcias MD Expected date of discharge: 08/31/17
== END 2017-08-31 16:00 | disposition home or self-care (01) | DRG 191 ==
LOC: EDUNIT# → N.ED 17:55 → N.EDINP 20:22 → SUATTDRO 20:22 → N.2E 21:05
PROVIDERS: ADMIT Internal Medicine; ATTEND Internal Medicine Geriatric Medicine